=== PATIENT | female | born 1970 | race Caucasian/White ===

== ENCOUNTER → 2019-01-24 | Outpatient (CLI) | payer MEDICARE ==
[~2019-01-24] MED LIST: IOPAMIDOL 76% 100 ML INFUS BTL 100 ML ONE
--- NOTE | 2019-01-24 15:16 | RADIOLOGY IMAGING REPORT ---
FACILITY: [facility] [place] PATIENT NAME: Marcie Boo : 1970 MR: [id number] V: [id number] EXAM DATE: ORDERING PHYSICIAN: CODY SHI TECHNOLOGIST: Location: [facility] Patient: Marcie Boo : 1970 Visit/Account:[id number] Date of Sevice: 01/24/2019 CT ABDOMEN PELVIS W/ CON History: 48-year-old female with inflammatory change in the infrapubic region/anterior perineum. Meredith luate for contiguous invasion. Technique: CT images were obtained through the abdomen and pelvis with intravenous contrast using: I sovue-370 75 mls. Coronal and sagittal reformations were then created. One of the following dose optimization techniques was utilized in the performance of this exam: Autom ated exposure control; adjustment of the mA and/or kV according to the patient's size; or use of an i terative reconstruction technique. Specific details can be referenced in the facility's radiology C T exam operational policy. Comparison study: None Findings: Lung bases: Negative Liver: There is no finding of focal lesion in the liver to suggest metastatic disease.There is no hep atic or portal vein thrombosis. Biliary: Gallbladder surgically absent. There are surgical clips in the gallbladder fossa. Spleen: Negative. Adrenals: Negative Pancreas: Negative. Kidneys/genitourinary/retroperitoneum: No findings of a solid or cystic mass. No findings of hydronep hrosis or nephrolithiasis. Bowel/peritoneum/mesentery: There are no dilated loops of large or small bowel suggest ileus or obstr uction. There are no findings of bowel wall thickening to suggest inflammatory bowel disease. Pelvic/genital urinary: There is no fluid in the pelvis. The uterus may be slightly enlarged in its fundal region. This could be related to a fibroid or multiparous status. Neither the right or left ovary is seen. Anterior and superior to the labial folds there is dermal thickening with underlying subcutaneous air that appears to be continuous with the anterior aspect of the vagina. The etiology of this finding is uncertain but the stranding is worrisome for infectious etiology. There is no large mass, but a s ubtle neoplasm resulting in a fistula with the skin cannot be excluded. The process does not appear to involve the bladder or rectum. The ischio rectal fossa are unremarkable. Vessels: Negative. Lymph node: Negative. Body wall/bones: Status post bilateral total hip replacements with artifact in the pelvis. Peritoneal cavity: No findings of ascites or pneumoperitoneum. IMPRESSION: 1. Just to the right of midline there is dermal thickening with subcutaneous air that extends to the region that is anterior and superior to the labial folds. This ulceration of the skin could be rela elias to infectious etiology, but a neoplasm cannot be excluded. A large mass is not seen. The inflam matory change appears to communicate with the superior aspect of the vagina. There is no obvious com munication to the rectum or bladder. Note there is artifact in the pelvis from bilateral total hip r eplacements. Results discussed with Dr. Joel general surgeon at time of dictation. Report Dictated By: Talat Pantoja MD at 01/24/2019 2:57 PM Report E-Signed By: Talat Pantoja MD at 01/24/2019 3:10 PM WSN:[email or web address]
== END ==
LOC: CT 11:54
PROVIDERS: ATTEND Nurse Practitioner Family
DX: L02.91 Cutaneous abscess, unspecified (principal)
CPT/HCPCS: 36415; 74177; 82565; Q9967